=== PATIENT | male | born 1945 | race Caucasian/White ===

== ENCOUNTER 2020-11-04 08:04 | Day surgery (SDC) | payer MEDICARE, BC ==
[2020-11-04] MEDS: Polymyxin B/Trimethoprim 10 ML Bottle EYELF SCH ×4 (08:39→10:24)
[2020-11-04] MEDS: Brimonidine 0.2% Ophth Soln 5 ML Bottle EYELF SCH ×4 (08:46→10:24)
[2020-11-04] MEDS: Phenylephrine 2.5% Ophth Soln 2 ML Bot EYELF SCH ×6 (08:51→10:11)
[2020-11-04] MEDS: Tropicamide 1% Ophth Soln 15 ML Bottle EYELF SCH ×4 (08:56→09:40)
--- NOTE | 2020-11-04 09:15 | PCM.PREANE ---
Preanesthetic Assessment - Procedure Proposed Procedure: Left cataract extraction with IOL. - Anesthesia/Transfusion/Family Hx Anesthesia History: Prior Anesthesia Without Reaction Family History of Anesthesia Reaction: No Transfusion History: No Prior Transfusion(s) Intubation History: Unknown - Review of Systems General: No Symptoms Pulmonary: No Symptoms (Former smoker: quit 1989) Cardiovascular: No Symptoms (HTN- no medications at this time), Palpitations (in the past. (25 yrs ago)) Gastrointestinal: No Symptoms (GERD-occasional.) Neurological: No Symptoms Other: Reports: None, Easy Bruising - Physical Assessment NPO Status Date: 11/03/20 NPO Status Time: 20:00 Vital Signs: Last Vital Signs Temp 36.7 C 11/04/20 08:05 Pulse 75 11/04/20 08:15 Resp 17 11/04/20 08:15 BP 179/99 H 11/04/20 08:15 Pulse Ox 95 11/04/20 08:15 Height: 1.7 m Weight: 74.843 kg ASA Class: 2 Mental Status: Alert & Oriented x3 Airway Class: Mallampati = 2 Dentition: Reports: Normal Dentition, [place] Thyro-Mental Finger Breadths: 3 Mouth Opening Finger Breadths: 3 ROM/Head Extension: Full Lungs: Clear to Auscultation, Normal Respiratory Effort Cardiovascular: Regular Rate, Regular Rhythm, No Murmurs - Allergies Allergies/Adverse Reactions: Allergies Allergy/AdvReac Type Severity Reaction Status Date / Time No Known Allergies Allergy Verified 11/03/20 14:27 - Anesthesia Plan Pre-Op Medication Ordered: None - Acknowledgements Anesthesia Type Planned: MAC Pt an Appropriate Candidate for the Planned Anesthesia: Yes Alternatives and Risks of Anesthesia Discussed w Pt/Guardian: Yes Pt/Guardian Understands and Agrees with Anesthesia Plan: Yes PreAnesthesia Questionnaire - HOME MEDS Home Medications: Home Meds . [No Known Home Meds] 11/03/20 [History] - CURRENT (IN HOUSE) MEDS Current Meds: Current Medications Brimonidine Tartrate (Alphagan 0.2% Ophth Soln) 0 ml EYELF ASDIRECTED [facility] Stop: 11/04/20 16:00 Last Admin: 11/04/20 08:46 Dose: 1 drop Documented by: Cefuroxime Sodium (Zinacef) 0 mg EYELF ASDIRECTED [facility] Stop: 11/04/20 16:00 Lidocaine HCl (Xylocaine-Mpf 1%) 0 ml INJECT ASDIRECTED RELL Stop: 11/04/20 16:00 Phenylephrine HCl (Mckay-Synephrine 2.5% Oph Soln) 0 ml EYELF ASDIRECTED RELL Stop: 11/04/20 16:00 Last Admin: 11/04/20 09:04 Dose: 1 drop Documented by: Pilocarpine HCl (Pilocar 4% Oph Soln) 0 ml EYELF ASDIRECTED RELL Stop: 11/04/20 16:00 Polymyxin/Trimethoprim Sulfate (Polytrim Ophth Soln) 0 ml EYELF ASDIRECTED RELL Stop: 11/04/20 16:00 Last Admin: 11/04/20 08:39 Dose: 1 drop Documented by: Tetracaine HCl (Tetracaine 0.5% Steri-Unit Starr) 0 ml EYEBOTH ASDIRECTED RELL Stop: 11/04/20 16:00 Tropicamide (Mydriacyl 1% Oph Soln) 0 ml EYELF ASDIRECTED RELL Stop: 11/04/20 16:00 Last Admin: 11/04/20 08:56 Dose: 1 drop Documented by:
[2020-11-04] MEDS: Tetracaine HCl/PF 0.5% 4 ML Bottle EYEBOTH SCH ×3 (09:51→10:11)
[2020-11-04] MEDS: Lidocaine 1% PF 2 ML SDV INJECT SCH ×2 (10:10→10:11)
[2020-11-04] MEDS: Cefuroxime 10 MG/ML SYRINGE EYELF SCH ×2 (10:12→10:23)
[2020-11-04] MEDS: Pilocarpine 4% Ophth Soln 15 ML Bot EYELF SCH ×2 (10:12→10:24)
--- NOTE | 2020-11-04 10:26 | PCM48HPAN ---
Post Anesthesia Note - EVALUATION WITHIN 48HRS OF ANESTHETIC Vital Signs in Normal Range: Yes Patient Participated in Evaluation: Yes Respiratory Function Stable: Yes Airway Patent: Yes Cardiovascular Function Stable: Yes Hydration Status Stable: Yes Pain Control Satisfactory: Yes Nausea and Vomiting Control Satisfactory: Yes Mental Status Recovered: Yes Vital Signs: Last Vital Signs Temp 36.7 C 11/04/20 08:05 Pulse 75 11/04/20 08:15 Resp 17 11/04/20 08:15 BP 179/99 H 11/04/20 08:15 Pulse Ox 95 11/04/20 08:15
== END 2020-11-04 10:34 | disposition home or self-care (01) ==
LOC: JD.SDS 08:04
PROVIDERS: ATTEND Ophthalmology
DX: H25.813 Combined forms of age-related cataract, bilateral (principal); H16.103 Unspecified superficial keratitis, bilateral; H16.223 Keratoconjunctivitis sicca, not specified as Sjogren's, bilateral; H02.834 Dermatochalasis of left upper eyelid; H02.831 Dermatochalasis of right upper eyelid; I10 Essential (primary) hypertension; Z98.890 Other specified postprocedural states; Z87.891 Personal history of nicotine dependence
CPT/HCPCS: 66984; C1780; J0697

== ENCOUNTER 2020-11-06 13:14 | Emergency (ER) | payer MEDICARE, BC ==
[2020-11-06] MEDS ORDERED: Sodium Chloride 0.9% 10 ML Syringe FLUSH PRN (13:37)
[2020-11-06] MEDS ORDERED: Labetalol 100 MG/20 ML MDV IVPUSH ONE (14:30)
--- NOTE | 2020-11-06 15:26 | EDM.PDOC ---
ED HPI GENERAL MEDICAL PROBLEM - General Chief Complaint: Cardiovascular Problem Stated Complaint: HIGH BLOOD PRESSURE SENT FROM [facility] Time Seen by Provider: 11/06/20 13:25 Source of Information: Reports: Patient, RN Notes Reviewed - History of Present Illness INITIAL COMMENTS - FREE TEXT/NARRATIVE: 75 yr old male sent over from clinic with finding of Htn. Pt was told his Bp was high when he had cataract surgery just a few days ago so went to the clinic in follow up. His BP was high at the [facility] so went to ED for eval and Rx. Pt states he had borderline high BP many yrs ago and than got better. Has not been on meds. No Kelley, chest pain, dyspnea or other unusual sx. - Related Data Allergies Allergy/AdvReac Type Severity Reaction Status Date / Time No Known Allergies Allergy Verified 11/06/20 13:26 Home Meds: Home Meds Lisinopril/Hydrochlorothiazide [Lisinopril-HCTZ 10-12.5 MG] 1 tab PO DAILY #30 tablet 11/06/20 [Rx] Past Medical History - Infectious Disease History Infectious Disease History: Reports: Chicken Pox, Measles, Mumps - Past Surgical History HEENT Surgical History: Reports: Cataract Surgery GI Surgical History: Reports: Hernia Repair/Other Social & Family History - Family History Family Medical History: No Pertinent Family History - Tobacco Use Tobacco Use Status *Q: Former Tobacco User Used Tobacco, but Quit: Yes Month/Year Tobacco Last Used: 1989 - Caffeine Use Caffeine Use: Reports: Coffee - Recreational Drug Use Recreational Drug Use: No ED ROS GENERAL - Review of Systems Review Of Systems: See Below Constitutional: Denies: Fever, Chills, Diaphoresis HEENT: Reports: No Symptoms Respiratory: Denies: Shortness of Breath Cardiovascular: Denies: Chest Pain GI/Abdominal: Denies: Abdominal Pain, Nausea, Vomiting : Reports: No Symptoms Musculoskeletal: Reports: No Symptoms Neurological: Denies: Headache, Numbness, Tingling, Trouble Speaking, Weakness ED EXAM, GENERAL - Physical Exam Exam: See Below General Appearance: Alert, No Apparent Distress Eye Exam: Bilateral Eye: PERRL Throat/Mouth: Normal Inspection Head: Atraumatic. No: Facial Swelling Neck: Supple Respiratory/Chest: No Respiratory Distress, Lungs Clear, Normal Breath Sounds Cardiovascular: Regular Rate, Rhythm GI/Abdominal: Non-Tender Extremities: Normal Inspection. No: Pedal Edema, Leg Pain Neurological: Alert, Oriented, No Motor/Sensory Deficits Skin Exam: Warm, Dry, Normal Color #1 Interpretation EKG Date: 11/06/20 Rhythm: NSR [place]: Normal P-Wave: Enlarged QRS: Other (LAFB) ST-T: Normal Course - Vital Signs Last Recorded V/S: Last Vital Signs Temp 97.7 F 11/06/20 13:23 Pulse 90 11/06/20 13:23 Resp 17 11/06/20 13:23 BP 189/102 H 11/06/20 13:23 Pulse Ox 96 11/06/20 13:23 - Orders/Labs/Meds Labs: Laboratory Tests 11/06/20 11/06/20 Range/Units 13:25 13:25 WBC 4.71 (4.23-9.07) K/mm3 RBC 5.79 (4.63-6.08) M/mm3 Hgb 16.4 (13.7-17.5) gm/dl Hct 49.5 (40.1-51.0) % MCV 85.5 (79.0-92.2) fl MCH 28.3 (25.7-32.2) pg MCHC 33.1 (32.2-35.5) g/dl RDW Std Deviation 41.4 (35.1-43.9) fL Plt Count 275 (163-337) K/mm3 MPV 10.4 (9.4-12.3) fl Neut % (Auto) 51.9 (34.0-67.9) % Lymph % (Auto) 31.4 (21.8-53.1) % [place] % (Auto) 11.5 (5.3-12.2) % Eos % (Auto) 4.2 (0.8-7.0) Baso % (Auto) 0.8 (0.1-1.2) % Neut # (Auto) 2.44 (1.78-5.38) K/mm3 Lymph # (Auto) 1.48 (1.32-3.57) K/mm3 [place] # (Auto) 0.54 (0.30-0.82) K/mm3 Eos # (Auto) 0.20 (0.04-0.54) K/mm3 Baso # (Auto) 0.04 (0.01-0.08) K/mm3 Sodium 142 (136-145) mEq/L Potassium 3.5 (3.5-5.1) mEq/L Chloride 104 (98-107) mEq/L Carbon Dioxide 27 (21-32) mEq/L Anion Gap 14.5 (5-15) BUN 15 (7-18) mg/dL Creatinine 0.9 (0.7-1.3) mg/dL Est Cr Clr Drug Dosing 68.34 mL/min Estimated GFR (MDRD) > 60 (>60) mL/min BUN/Creatinine Ratio 16.7 (14-18) Glucose 110 (83-115) mg/dL Calcium 9.3 (8.5-10.1) mg/dL Total Bilirubin 0.5 (0.2-1.0) mg/dL AST 14 L (15-37) U/L ALT 28 (16-63) U/L Alkaline Phosphatase 87 (46-116) U/L Total Protein 8.2 (6.4-8.2) g/dl Albumin 4.0 (3.4-5.0) g/dl Globulin 4.2 gm/dL Albumin/Globulin Ratio 1.0 (1-2) Meds: Medications Discontinued Medications Generic Name Dose Route Start Last Admin Trade Name Freq PRN Reason Stop Dose Admin Labetalol HCl 20 mg 11/06/20 14:30 11/06/20 14:35 Normodyne IVPUSH 11/06/20 14:31 20 mg ONETIME ONE Administration Protocol Sodium Chloride 10 ml 11/06/20 13:37 11/06/20 13:45 Saline Flush FLUSH 10 ml ASDIRECTED PRN Administration Keep Vein Open - Re-Assessments/Exams Free Text/Narrative Re-Assessment/Exam: 11/07/20 15:38 labs relatively nl, asymptomatic at time of exam and while in ED. Did give 1 dose of labetalol. BP about 190/100 at time of discharge improved from arrival. Started on Lisinopril HCTZ . Discharge instr. as documented. Departure - Departure Time of Disposition: 15:20 Disposition: Home, Self-Care 01 Condition: Fair Clinical Impression: Hypertension Qualifiers: Hypertension type: essential hypertension Qualified Code(s): I10 - Essential (primary) hypertension Prescriptions: Lisinopril/Hydrochlorothiazide [Lisinopril-HCTZ 10-12.5 MG] 1 tab PO DAILY #30 tablet Instructions: Hypertension, Adult, [id number] Referrals: PCP,None [Primary Care Provider] - Forms: ED Department Discharge Additional Instructions: Avoid salty food. Lisinopril/HCTH 10/12.5 once daily. Buy a BP unit, check your BP about twice a day and keep a log for your medical provider. See medical provider of your choice in about 10 to 14 days. It will likely take 1 to 2 weeks for your BP to adjust to where it is going to go. It may take more medication or higher dose to achieve optimal levels. Continue to exercise. Eat a cardiac healthy diet, the mediteranean diet offers good general guidelines. Return to ED as needed. Sepsis Event Note (ED) - Evaluation Sepsis Screening Result: No Definite Risk
== END 2020-11-06 15:40 | disposition home or self-care (01) ==
LOC: JD.ED 13:14
DX: I10 Essential (primary) hypertension (principal); Z79.899 Other long term (current) drug therapy; Z87.891 Personal history of nicotine dependence
CPT/HCPCS: 36415; 80053; 85025; 93005; 96374; 99283; J3490

== ENCOUNTER 2020-12-02 07:30 | Day surgery (SDC) | payer MEDICARE, BC ==
[2020-12-02] MEDS: Polymyxin B/Trimethoprim 10 ML Bottle EYERT SCH ×4 (07:38→09:37)
[2020-12-02] MEDS: Tetracaine HCl/PF 0.5% 4 ML Bottle EYEBOTH SCH ×3 (07:40→09:23)
[2020-12-02] MEDS: Phenylephrine 2.5% Ophth Soln 2 ML Bot EYERT SCH ×6 (07:40→09:13)
[2020-12-02] MEDS: Lidocaine 1% PF 2 ML SDV INJECT SCH ×2 (07:41→09:24)
[2020-12-02] MEDS: Pilocarpine 4% Ophth Soln 15 ML Bot EYERT SCH ×2 (07:41→09:37)
[2020-12-02] MEDS: Brimonidine 0.2% Ophth Soln 5 ML Bottle EYERT SCH ×4 (07:41→09:37)
[2020-12-02] MEDS: Cefuroxime 10 MG/ML SYRINGE EYERT SCH ×2 (07:41→09:36)
[2020-12-02] MEDS: Tropicamide 1% Ophth Soln 15 ML Bottle EYERT SCH ×4 (07:52→08:42)
--- NOTE | 2020-12-02 07:52 | PCM.PREANE ---
Preanesthetic Assessment - Anesthesia/Transfusion/Family Hx Anesthesia History: Prior Anesthesia Without Reaction Family History of Anesthesia Reaction: No Transfusion History: No Prior Transfusion(s) Intubation History: Unknown - Review of Systems General: No Symptoms Pulmonary: No Symptoms (HTN, recently started Lisopril) Cardiovascular: Other (HTn) Gastrointestinal: Other (heartburn, takes OTC as needed) Neurological: No Symptoms Other: Reports: None - Physical Assessment NPO Status Date: 12/01/20 NPO Status Time: 22:30 Weight: 77.111 kg ASA Class: 2 Mental Status: Alert & Oriented x3 Airway Class: Mallampati = 2 Dentition: Reports: Normal Dentition Thyro-Mental Finger Breadths: 3 Mouth Opening Finger Breadths: 3 ROM/Head Extension: Full Lungs: Clear to Auscultation, Normal Respiratory Effort Cardiovascular: Regular Rate, Regular Rhythm - Allergies Allergies/Adverse Reactions: Allergies Allergy/AdvReac Type Severity Reaction Status Date / Time No Known Allergies Allergy Verified 12/01/20 13:48 - Blood Blood Available: No Product(s) Available: None - Anesthesia Plan Pre-Op Medication Ordered: None - Acknowledgements Anesthesia Type Planned: MAC Pt an Appropriate Candidate for the Planned Anesthesia: Yes Alternatives and Risks of Anesthesia Discussed w Pt/Guardian: Yes Pt/Guardian Understands and Agrees with Anesthesia Plan: Yes PreAnesthesia Questionnaire - Infectious Disease History Infectious Disease History: Reports: Chicken Pox, Measles, Mumps - Past Surgical History HEENT Surgical History: Reports: Cataract Surgery GI Surgical History: Reports: Hernia Repair/Other - HOME MEDS Home Medications: Home Meds Lisinopril/Hydrochlorothiazide [Lisinopril-HCTZ 10-12.5 MG] 1 tab PO DAILY #30 tablet 11/06/20 [Rx] - CURRENT (IN HOUSE) MEDS Current Meds: Current Medications Brimonidine Tartrate (Brimonidine 0.2% Ophth Soln 5 Ml Bottle) 0 ml EYERT ASDIRECTED RELL Stop: 12/02/20 18:00 Last Admin: 12/02/20 07:41 Dose: 1 ml Documented by: Cefuroxime Sodium (Cefuroxime 10 Mg/Ml Syringe) 0 mg EYERT ASDIRECTED RELL Stop: 12/02/20 18:00 Last Admin: 12/02/20 07:41 Dose: 1 mg Documented by: Lidocaine HCl (Lidocaine 1% Pf 2 Ml Sdv) 0 ml INJECT ASDIRECTED RELL Stop: 12/02/20 18:00 Last Admin: 12/02/20 07:41 Dose: 1 ml Documented by: Phenylephrine HCl (Phenylephrine 2.5% Ophth Soln 2 Ml Bot) 0 ml EYERT ASDIRECTED RELL Stop: 12/02/20 18:00 Last Admin: 12/02/20 07:40 Dose: 1 ml Documented by: Pilocarpine HCl (Pilocarpine 4% Ophth Soln 15 Ml Bot) 0 ml EYERT ASDIRECTED [facility] Stop: 12/02/20 18:00 Last Admin: 12/02/20 07:41 Dose: 1 ml Documented by: Polymyxin/Trimethoprim Sulfate (Polymyxin B/Trimethoprim 10 Ml Bottle) 0 ml EYERT ASDIRECTED [facility] Stop: 12/02/20 18:00 Last Admin: 12/02/20 07:41 Dose: 1 ml Documented by: Tetracaine HCl (Tetracaine Hcl/Pf 0.5% 4 Ml Bottle) 0 ml EYEBOTH ASDIRECTED [facility] Stop: 12/02/20 18:00 Last Admin: 12/02/20 07:40 Dose: 1 ml Documented by: Tropicamide (Tropicamide 1% Ophth Soln 15 Ml Bottle) 0 ml EYERT ASDIRECTED [facility] Stop: 12/02/20 18:00
--- NOTE | 2020-12-02 10:06 | PCM48HPAN ---
Post Anesthesia Note - EVALUATION WITHIN 48HRS OF ANESTHETIC Vital Signs in Normal Range: Yes Patient Participated in Evaluation: Yes Respiratory Function Stable: Yes Airway Patent: Yes Cardiovascular Function Stable: Yes Hydration Status Stable: Yes Pain Control Satisfactory: Yes Nausea and Vomiting Control Satisfactory: Yes Mental Status Recovered: Yes Vital Signs: Last Vital Signs Temp 37.0 C 12/02/20 07:25 Pulse 77 12/02/20 07:25 Resp 16 12/02/20 07:25 BP 135/93 H 12/02/20 07:25 Pulse Ox 97 12/02/20 07:25
== END 2020-12-02 09:46 | disposition home or self-care (01) ==
LOC: JD.SDS 07:30
PROVIDERS: ATTEND Ophthalmology
DX: H25.811 Combined forms of age-related cataract, right eye (principal); H16.223 Keratoconjunctivitis sicca, not specified as Sjogren's, bilateral; H02.831 Dermatochalasis of right upper eyelid; H02.834 Dermatochalasis of left upper eyelid; H40.053 Ocular hypertension, bilateral; I10 Essential (primary) hypertension; Z87.891 Personal history of nicotine dependence; Z96.1 Presence of intraocular lens; Z79.899 Other long term (current) drug therapy; Z98.890 Other specified postprocedural states
CPT/HCPCS: 66984; C1780; J0697